=== PATIENT | male | born 1960 ===

== ENCOUNTER → 2023-06-23 10:02 | Outpatient (REF) | payer BC, SELFPAY | LOC: DHCBC HW 10:02 | PROVIDERS: ATTENDING PHYSICIAN Internal Medicine Cardiovascular Disease; FAMILY PHYSICIAN Internal Medicine | DX: I10 Essential (primary) hypertension (principal); E11.9 Type 2 diabetes mellitus without complications; E78.00 Pure hypercholesterolemia, unspecified; I44.7 Left bundle-branch block, unspecified | CPT/HCPCS: 93306 ==

== ENCOUNTER 2024-07-26 06:17 | Day surgery (SDC) | payer BC, SELFPAY ==
[2024-07-26 08:12] LABS: Glucose - Point of Care 114 mg/dl (70-99)
== END 2024-07-26 09:25 | disposition home or self-care (01) ==
LOC: GI 06:17
PROVIDERS: ATTENDING PHYSICIAN Internal Medicine Gastroenterology
DX: Z12.11 Encounter for screening for malignant neoplasm of colon (principal); K64.8 Other hemorrhoids; D12.2 Benign neoplasm of ascending colon; D12.0 Benign neoplasm of cecum; D12.3 Benign neoplasm of transverse colon
CPT/HCPCS: 45385; 45380; 88305; 82962